=== PATIENT | male | born 1955 | race Caucasian/White ===

== ENCOUNTER 2020-10-29 14:42 | Emergency (ER) | payer OTHER, MEDICARE, SELFPAY ==
[2020-10-29 14:54] VITALS: BP 131/74; PULSE 60; RESP 15; TEMP 36.9; O2SAT 98; BMI 27.9
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
[2020-10-29 16:51] VITALS: BP 104/56; PULSE 68; RESP 18; O2SAT 96
== END 2020-10-29 17:00 | disposition home or self-care (01) ==
PROVIDERS: Emergency Provider Physician Assistant
DX: S90.32XA Contusion of left foot, initial encounter (principal); M25.511 Pain in right shoulder; M25.561 Pain in right knee; V86.55XA Driver of 3- or 4- wheeled all-terrain vehicle (ATV) injured in nontraffic accident, initial encounter
CPT/HCPCS: 73030; 73562; 73630; 99283; E0114